=== PATIENT | male | born 1995 | race American Indian/Alaskan Native ===

== ENCOUNTER 2019-06-04 20:17 | Emergency (ER) | payer SELFPAY ==
[2019-06-04 21:39] VITALS: BP 113/65
[2019-06-04] MEDS ORDERED: SODIUM CHLORIDE 0.9% 1000 ML 1,000 ML IV ONE (21:41)
--- NOTE | 2019-06-04 21:41 | Event Note ---
ED Screening Note Date of service: 06/04/19 Time: 21:38 ED Screening Note: Pt c/o right abdominal /right flank pain x 1 mth. Today with low back with abd pain and sob but no n/v/d, no chest pain; last BM earlier today and normal. Denies UTI symptoms. Has never had this abd pain evaluated. This initial assessment/diagnostic orders/clinical plan/treatment(s) is/are subject to change based on patients health status, clinical progression and re- assessment by fellow clinical providers in the ED. Further treatment and workup at subsequent clinical providers discretion. Patient/guardian urged not to elope from the ED as their condition may be serious if not clinically assessed and managed. Initial orders include: UA labs GB US
[2019-06-04 22:13] LABS: Basophils # (Auto) 0.1 K/mm3 (0.0-0.1); Basophils % (Auto) 0.9 % (0.0-1.8); Eosinophils # (Auto) 0.1 K/mm3 (0.0-0.4); Eosinophils % (Auto) 0.7 % (0.0-4.3); Hematocrit 45.1 % (35.5-45.6); Lymphocytes # (Auto) 2.8 K/mm3 (1.2-5.4); Mean Corpuscular HGB Conc 33 % (32-34); Mean Corpuscular Volume 96 fl (84-94); Monocytes # (Auto) 0.6 K/mm3 (0.0-0.8); Monocytes % (Auto) 8.1 % (0.0-7.3); Platelet Count 210 K/mm3 (140-440); Red Blood Count 4.68 M/mm3 (3.65-5.03); Red Cell Distribution Width 13.3 % (13.2-15.2)
[2019-06-04 22:43] LABS: Alanine Aminotransferase 14 units/L (7-56); Albumin 4.6 g/dL (3.9-5); BUN/Creatinine Ratio 11; Blood Urea Nitrogen 13 mg/dL (9-20); Calcium 9.4 mg/dL (8.4-10.2); Hemolysis Index 7
[2019-06-04 22:44] LABS: Bilirubin,Urine NEG (Negative); Blood,Urine NEG (Negative); Color,Urine Yellow (Yellow); Mucus,Urine FEW /HPF; Protein,Urine <15 mg/dL mg/dL (Negative); Urobilinogen,Urine < 2.0 mg/dL (<2.0)
--- NOTE | 2019-06-04 22:57 | Ultrasound Report ---
ULTRASOUND ABDOMEN, LIMITED (RIGHT UPPER QUADRANT) INDICATION / CLINICAL INFORMATION: Right upper quadrant pain for one month.. COMPARISON: None available. FINDINGS: PANCREAS: Visualized portion shows no significant abnormality. LIVER: No significant abnormality. GALLBLADDER: No significant abnormality. BILE DUCTS: No significant abnormality. Common bile duct measures 1.0 mm. FREE FLUID: None. ADDITIONAL FINDINGS: None. IMPRESSION: 1. No significant sonographic abnormality of the right upper quadrant. Signer Name: Jennifer Santos MD Signed: 06/04/2019 10:52 PM Workstation Name: [id number]
--- NOTE | 2019-06-05 01:03 | Emergency Department Report ---
ED Abdominal Pain HPI - General Chief Complaint: Abdominal Pain Stated Complaint: STOMACH PAIN Time Seen by Provider: 06/04/19 21:37 Source: patient Mode of arrival: Ambulatory Limitations: No Limitations - History of Present Illness Initial Comments: Pt is a 24 y/o aam , with no previous hx who presents for c/o right abdominal /right flank pain x 1 mth. Today with low back pain. pt denies hx of renal stones , no hematuria, no dysuria , + urinary frequency. no fever or chills, no n/v , no chest pain; last BM earlier today and normal. Symptoms exacerbated by movement, symptoms relieved by rest. MD Complaint: abdominal pain, flank pain (right ) Onset/Timin -: month(s) Location: R flank Radiation: suprapubic Migration to: suprapubic Severity: moderate Severity scale (0 -10): 4 Quality: aching Consistency: intermittent Improves With: nothing Worsens With: movement Associated Symptoms: dysuria (frequency ). denies: nausea, vomiting, diarrhea, fever, chills, constipation, hematemesis, hematochezia, melena, hematuria, anorexia, syncope - Related Data Previous Rx's Medication Instructions Recorded Last Taken Type Ketorolac [Toradol] 10 mg PO Q6H PRN #12 tablet 06/05/19 Unknown Rx Tamsulosin [Flomax] 0.4 mg PO QDAY #14 cap 06/05/19 Unknown Rx Allergies Allergy/AdvReac Type Severity Reaction Status Date / Time No Known Allergies Allergy Verified 06/04/19 20:20 ED Review of Systems ROS: Stated complaint: STOMACH PAIN Other details as noted in HPI Constitutional: denies: chills, fever Eyes: denies: eye pain, eye discharge, vision change ENT: denies: ear pain, throat pain Respiratory: denies: cough, shortness of breath, wheezing Cardiovascular: denies: chest pain, palpitations Endocrine: no symptoms reported Gastrointestinal: abdominal pain. denies: nausea, vomiting, melena Genitourinary: frequency. denies: urgency, dysuria, hematuria, discharge, testicular pain, testicular mass Musculoskeletal: back pain (right flank) Skin: denies: rash, lesions Neurological: denies: headache, weakness, paresthesias Psychiatric: denies: anxiety, depression Hematological/Lymphatic: denies: easy bleeding, easy bruising ED Past Medical Hx - Past Medical History Previous Medical History?: No - Surgical History Past Surgical History?: No - Social History Smoking Status: Never Smoker - Medications Home Medications: Home Medications Medication Instructions Recorded Confirmed Last Taken Type Ketorolac [Toradol] 10 mg PO Q6H PRN #12 tablet 06/05/19 Unknown Rx Tamsulosin [Flomax] 0.4 mg PO QDAY #14 cap 06/05/19 Unknown Rx ED Physical Exam - General Limitations: No Limitations General appearance: alert, in no apparent distress - Head Head exam: Present: atraumatic, normocephalic - Eye Eye exam: Present: normal appearance, PERRL, EOMI Pupils: Present: normal accommodation - ENT ENT exam: Present: mucous membranes moist - Neck Neck exam: Present: normal inspection - Respiratory Respiratory exam: Present: normal lung sounds bilaterally. Absent: respiratory distress, wheezes, stridor, chest wall tenderness - Cardiovascular Cardiovascular Exam: Present: regular rate, normal rhythm, normal heart sounds. Absent: systolic murmur, diastolic murmur, rubs, gallop - GI/Abdominal GI/Abdominal exam: Present: soft, normal bowel sounds. Absent: distended, tenderness, guarding, rebound, rigid, bruit, hernia - Rectal Rectal exam: Present: deferred - Extremities Exam Extremities exam: Present: normal inspection, full ROM. Absent: tenderness - Back Exam Back exam: Present: normal inspection, full ROM, tenderness, CVA tenderness (R). Absent: CVA tenderness (L), muscle spasm, paraspinal tenderness, vertebral tenderness - Neurological Exam Neurological exam: Present: alert, oriented X3, CN II-XII intact, normal gait - Psychiatric Psychiatric exam: Present: normal affect, normal mood - Skin Skin exam: Present: warm, dry, intact, normal color. Absent: rash ED Course Vital Signs 06/04/19 20:36 Temperature 98.8 F Pulse Rate 59 L Respiratory 12 Rate Blood Pressure 113/65 O2 Sat by Pulse 100 Oximetry ED Medical Decision Making - Lab Data Result diagrams: 06/04/19 21:51 06/04/19 21:51 Labs 06/04/19 06/04/19 06/04/19 21:51 21:51 21:51 WBC 7.7 RBC 4.68 Hgb 15.0 Hct 45.1 MCV 96 H MCH 32 MCHC 33 RDW 13.3 Plt Count 210 Lymph % (Auto) 37.0 H [place] % (Auto) 8.1 H Eos % (Auto) 0.7 Baso % (Auto) 0.9 Lymph # 2.8 [place] # 0.6 Eos # 0.1 Baso # 0.1 Seg Neutrophils % 53.3 Seg Neutrophils # 4.1 Sodium 136 L Potassium 4.0 Chloride 99.6 Carbon Dioxide 25 Anion Gap 15 BUN 13 Creatinine 1.2 Estimated GFR > 60 BUN/Creatinine Ratio 11 Glucose 77 Calcium 9.4 Total Bilirubin 0.30 AST 20 ALT 14 Alkaline Phosphatase 45 Total Protein 7.9 Albumin 4.6 Albumin/Globulin Ratio 1.4 Lipase 20 Urine Color Urine Turbidity Urine pH Ur Specific [place] Urine Protein Urine Glucose (UA) Urine Ketones Urine Blood Urine Nitrite Urine Bilirubin Urine Urobilinogen Ur Leukocyte Esterase Urine WBC (Auto) Urine RBC (Auto) Urine Mucus 06/04/19 22:14 WBC RBC Hgb Hct MCV MCH MCHC RDW Plt Count Lymph % (Auto) [place] % (Auto) Eos % (Auto) Baso % (Auto) Lymph # [place] # Eos # Baso # Seg Neutrophils % Seg Neutrophils # Sodium Potassium Chloride Carbon Dioxide Anion Gap BUN Creatinine Estimated GFR BUN/Creatinine Ratio Glucose Calcium Total Bilirubin AST ALT Alkaline Phosphatase Total Protein Albumin Albumin/Globulin Ratio Lipase Urine Color Yellow Urine Turbidity Clear Urine pH 7.0 Ur Specific [place] 1.020 Urine Protein <15 mg/dl Urine Glucose (UA) Neg Urine Ketones Neg Urine Blood Neg Urine Nitrite Neg Urine Bilirubin Neg Urine Urobilinogen < 2.0 Ur Leukocyte Esterase Neg Urine WBC (Auto) 1.0 Urine RBC (Auto) 10.0 Urine Mucus Few - Radiology Data Radiology results: report reviewed, image reviewed Ordering Physician: SHILPI VELAZQUEZ Date of Service: 06/04/19 Procedure(s): US abdomen limited Accession Number(s): [id number] cc: SHILPI VELAZQUEZ ULTRASOUND ABDOMEN, LIMITED (RIGHT UPPER QUADRANT) INDICATION / CLINICAL INFORMATION: Right upper quadrant pain for one month.. COMPARISON: None available. FINDINGS: PANCREAS: Visualized portion shows no significant abnormality. LIVER: No significant abnormality. GALLBLADDER: No significant abnormality. BILE DUCTS: No significant abnormality. Common bile duct measures 1.0 mm. FREE FLUID: None. ADDITIONAL FINDINGS: None. IMPRESSION: 1. No significant sonographic abnormality of the right upper quadrant. Signer Name: Jennifer Santos MD Signed: 06/04/2019 10:52 PM Workstation Name: [id number] Transcribed By: DILLAN Dictated By: Robert Santos MD Electronically Authenticated By: Robert Santos MD Signed Date/Time: 06/04/192251 DD/ 50 TD/TT: Ordering Physician: ALIVIA RESENDIZ NP Date of Service: 06/05/19 Procedure(s): CT abdomen pelvis wo con Accession Number(s): [id number] cc: ALIVIA RESENDIZ NP CT ABDOMEN AND PELVIS WITHOUT CONTRAST INDICATION / CLINICAL INFORMATION: flank pain. Right upper quadrant pain for one month. TECHNIQUE: Axial CT images were obtained through the abdomen and pelvis without IV contrast. All CT scans at this location are performed using CT dose reduction for ALARA by means of automated exposure control. COMPARISON: Ultrasound dated 06/04/19 FINDINGS: LOWER CHEST: No significant abnormality. LIVER: No significant abnormality. GALLBLADDER: No significant abnormality. BILE DUCTS: No significant abnormality. PANCREAS: No significant abnormality. SPLEEN: No significant abnormality. ADRENALS: No significant abnormality. RIGHT KIDNEY and URETER: No significant abnormality. LEFT KIDNEY and URETER: Tiny nonobstructing intrarenal stone. No ureteral stone or hydronephrosis. STOMACH and SMALL BOWEL: No significant abnormality. COLON: No significant abnormality. APPENDIX: No significant abnormality. PERITONEUM: No free fluid. No free air. No fluid collection. LYMPH NODES: No significant adenopathy. AORTA and ARTERIES: No significant abnormality. IVC and VEINS: No significant abnormality. URINARY BLADDER: No significant abnormality. REPRODUCTIVE ORGANS: No significant abnormality. ADDITIONAL FINDINGS: Small umbilical hernia containing a loop of nonobstructed small bowel. SKELETAL SYSTEM: No significant abnormality. IMPRESSION: 1. No inflammatory process or bowel obstruction. 2. Tiny nonobstructing left intrarenal stone. No ureteral stones or hydronephrosis. 3. Small umbilical hernia. Signer Name: Jennifer Santos MD Signed: 06/05/2019 1:45 AM Workstation Name: [id number] Transcribed By: DILLAN Dictated By: Robert Santos MD Electronically Authenticated By: Robert Santos MD Signed Date/Time: 06/05/19144 DD/ TD/TT: - Medical Decision Making Ordering Physician: ALIVIA RESENDIZ NP Date of Service: 06/05/19 Procedure(s): CT abdomen pelvis wo con Accession Number(s): [id number] cc: ALIVIA RESENDIZ NP CT ABDOMEN AND PELVIS WITHOUT CONTRAST INDICATION / CLINICAL INFORMATION: flank pain. Right upper quadrant pain for one month. TECHNIQUE: Axial CT images were obtained through the abdomen and pelvis without IV contrast. All CT scans at this location are performed using CT dose reduction for ALARA by means of automated exposure control. COMPARISON: Ultrasound dated 06/04/19 This is a small urethral stones, pt has likely passed some stones given peek of symptoms and relief with toradol, plan: follow up with urology, [facility], there is no infection, will follow up with urology Dr. Millan in 2-3 days, hydrated , return to ed if symptoms worsen. pt dc'd to home instable condition at this time. pt is voiding without difficulty at this time. Critical care attestation.: If time is entered above; I have spent that time in minutes in the direct care of this critically ill patient, excluding procedure time. ED Disposition Clinical Impression: Urethral stone Disposition: DC-01 TO HOME OR SELFCARE Is pt being admited?: No Does the pt Need Aspirin: No Condition: Stable Instructions: Kidney Stones (ED) Prescriptions: Tamsulosin [Flomax] 0.4 mg PO QDAY #14 cap Ketorolac [Toradol] 10 mg PO Q6H PRN #12 tablet PRN Reason: Pain Referrals: PRIMARY CAREMD [Primary Care Provider] - 3-5 Days TAYLOR MILLAN MD [Staff Physician] - 3-5 Days Forms: Work/School Release Form(ED) Time of Disposition: 02:10
--- NOTE | 2019-06-05 01:49 | Cat Scan Report ---
CT ABDOMEN AND PELVIS WITHOUT CONTRAST INDICATION / CLINICAL INFORMATION: flank pain. Right upper quadrant pain for one month. TECHNIQUE: Axial CT images were obtained through the abdomen and pelvis without IV contrast. All CT scans at [facility] location are performed using CT dose reduction for ALARA by means of automated exposure control. COMPARISON: Ultrasound dated 06/04/19 FINDINGS: LOWER CHEST: No significant abnormality. LIVER: No significant abnormality. GALLBLADDER: No significant abnormality. BILE DUCTS: No significant abnormality. PANCREAS: No significant abnormality. SPLEEN: No significant abnormality. ADRENALS: No significant abnormality. RIGHT KIDNEY and URETER: No significant abnormality. LEFT KIDNEY and URETER: Tiny nonobstructing intrarenal stone. No ureteral stone or hydronephrosis. STOMACH and SMALL BOWEL: No significant abnormality. COLON: No significant abnormality. APPENDIX: No significant abnormality. PERITONEUM: No free fluid. No free air. No fluid collection. LYMPH NODES: No significant adenopathy. AORTA and ARTERIES: No significant abnormality. IVC and VEINS: No significant abnormality. URINARY BLADDER: No significant abnormality. REPRODUCTIVE ORGANS: No significant abnormality. ADDITIONAL FINDINGS: Small umbilical hernia containing a loop of nonobstructed small bowel. SKELETAL SYSTEM: No significant abnormality. IMPRESSION: 1. No inflammatory process or bowel obstruction. 2. Tiny nonobstructing left intrarenal stone. No ureteral stones or hydronephrosis. 3. Small umbilical hernia. Signer Name: Jennifer Santos MD Signed: 06/05/2019 1:45 AM Workstation Name: [id number]
== END 2019-06-05 02:23 | disposition home or self-care (01) ==
LOC: ED 20:17
DX: N21.1 Calculus in urethra (principal); Z79.899 Other long term (current) drug therapy
CPT/HCPCS: 36415; 74176; 76705; 80053; 81001; 83690; 85025